=== PATIENT | male | born 1960 | race Caucasian/White ===

== ENCOUNTER 2018-03-30 09:54 | Inpatient (IN) | payer BC ==
[2018-03-30 10:27] LABS: #Lymphocytes 2.2 thou/uL (1.20-3.40); #Neutrophils 7.9 thou/uL (1.40-6.50); %Basophils 0.4 % (0.0-1.0); %Eosinophils 0.2 % (0.0-10.0); %Lymphocytes 19.8 % (21.0-51.0); %Neutrophils 70.5 % (42.0-75.0); Hemoglobin 18.2 g/dL (14.0-18.0); Mean Corpuscular HGB CONC 32.3 g/dL (32.0-36.0); Mean Corpuscular Hemoglobin 29.1 pg (27.0-31.0); Mean Corpuscular Volume 90.2 fL (78.0-98.0); Mean Platelet Volume 8.5 fL (7.4-10.4); Platelet Count 173 thou/uL (130-400); RBC Distribution Width 12.1 % (11.5-14.5); Red Blood Cell (RBC) Count 6.24 mill/uL (4.70-6.10); White Blood Cell (WBC) Count 11.2 thou/uL (4.8-10.8)
--- NOTE | 2018-03-30 10:39 | RAD ---
CHEST ONE VIEW: History: Chest pain. Comparison: None. FINDINGS: Lungs are clear. No pneumothorax or effusion. Cardiac silhouette and mediastinal contours are within normal limits. IMPRESSION: No acute intrathoracic abnormality. POS: [facility]
[2018-03-30 10:57] LABS: ALT (SGPT) 103 U/L (8-55); AST (SGOT) 65 U/L (5-34); Albumin 4.7 g/dL (3.5-5.0); Alkaline Phosphatase 89 U/L (40-150); Anion Gap 17 mmol/L (10-20); BUN (Urea Nitrogen) 17 mg/dL (8.4-25.7); Bilirubin, Total 0.5 mg/dL (0.2-1.2); CK (CPK) 286 U/L (30-200); Calc. Creatinine Clearance 0 mL/min (70-130); Calcium 9.9 mg/dL (7.8-10.44); Carbon Dioxide 22 mmol/L (22-29); Chloride 103 mmol/L (98-107); Estimated GFR-MDRD 77; Globulin 3.6 g/dL (2.4-3.5); Glucose 114 mg/dL (70-105); Lipase 22 U/L (8-78); Potassium 4.6 mmol/L (3.5-5.1); Protein, Total 8.3 g/dL (6.0-8.3); Sodium 137 mmol/L (136-145)
[2018-03-30 11:42] LABS: CKMB 37.5 ng/mL (0-6.6)
[2018-03-30] MEDS ORDERED: Enoxaparin Sodium 80 MG/0.8 ML SYRINGE ONE (12:33)
[2018-03-30] MEDS ORDERED: Nitroglycerin 2% Ointment 1 INCH/1 GM Packet ONE (12:37)
[2018-03-30 13:05] LABS: Acetaminophen Less than 6.0 mcg/mL (10.0-30.0); Alcohol Less than 10 mg/dL (Less than 10); Salicylate Less than 8.0 mg/dL (15.0-30.0)
[2018-03-30] MEDS ORDERED: Dextrose 50% Abboject 50 ML SYRINGE ONE (13:23)
[2018-03-30 13:34] LABS: Medtox Reader # READER 1
[2018-03-30 13:35] LABS: Amphetamine Not Detected (NotDetected); Barbiturates Screen Not Detected (NotDetected); Benzodiazepine Screen Not Detected (NotDetected); Cocaine Metabolite Screen Not Detected (NotDetected); Medtox Control Line Valid? VALID (VALID); Methadone Not Detected (NotDetected); Methamphetamine Not Detected (NotDetected); Opiate Screen Not Detected (NotDetected); Oxycodone Screen Not Detected (NotDetected); Phencyclidine (PCP) Not Detected (NotDetected); THC/Cannabinoid Screen Not Detected (NotDetected); Tricyclic Screen Not Detected (NotDetected)
[2018-03-30] MEDS ORDERED: Ondansetron PF 4 MG/2 ML Vial IVP PRN (16:49)
[2018-03-30] MEDS ORDERED: Acetaminophen 325 MG TAB PO PRN (16:49)
[2018-03-30] MEDS ORDERED: Calcium Carbonate 500 MG ChewTAB PO PRN (16:49)
[2018-03-30] MEDS ORDERED: Guaifenesin DM 100-10/5 ML UDCUP PO PRN (16:49)
[2018-03-30] MEDS ORDERED: Ondansetron ODT 4 MG TAB PO PRN (16:49)
[2018-03-30] MEDS ORDERED: Nitroglycerin 0.4 MG TAB (25 Tab Bottle) PO PRN (16:49)
[2018-03-30] MEDS ORDERED: HYDROcodone/Acetaminophen 5/325 mg Tablet PO PRN (16:49)
[2018-03-30] MEDS ORDERED: Labetalol HCl 100 MG/20 ML VIAL SLOW IVP PRN (16:56)
[2018-03-30] MEDS ORDERED: ALPRAZolam 0.25 MG TAB PO PRN (16:56)
[2018-03-30] MEDS ORDERED: Temazepam 15 MG CAP PO PRN (16:56)
[2018-03-30 17:00] LABS: CKMB 31.8 ng/mL (0-6.6)
--- NOTE | 2018-03-30 17:02 | HP ---
PRIMARY CARE PHYSICIAN: None. CHIEF COMPLAINT: Chest discomfort. HISTORY OF PRESENT ILLNESS: The patient is a 57-year-old male with more than [id number] smoking history, presented to the emergency room with chest discomfort. The chest discomfort has been ongoing for last 3 to 4 days. It is substernal, radiating to his left shoulder. The pain gets worse on exertion. It improves with resting. He denies any shortness of breath, lightheadedness, dizziness, nausea, vomiting, recent immobilization, travel, or cough. He occasionally feels his heart beat skipping. He denies previous cardiac workup. No drug use reported. In the emergency room, initial vital signs showed temperature 97.6, respirations 18, pulse rate of 106, blood pressure of 141/98 with O2 saturation 97% on room air. His troponin was 1.9 with CK-MB of 37.5. His EKG showed sinus rhythm with nonspecific ST-T wave changes. He received Lovenox, aspirin, and IV fluids in the emergency room. PAST MEDICAL HISTORY: Tobacco dependence/anxiety. PAST SURGICAL HISTORY: Reviewed with the patient and none. ALLERGIES: NO KNOWN DRUG ALLERGIES. CURRENT HOME MEDICATION: The patient takes; 1. Aspirin every other day. 2. Multivitamin. SOCIAL HISTORY: More than 01-[id number]-[id number] smoking history. He continues to smoke up to one pack a day. Drinks alcohol especially on Fridays. No drug use reported. FAMILY HISTORY: Mother with stomach cancer. REVIEW OF SYSTEMS: All other review of systems was reviewed and was found negative. PHYSICAL EXAMINATION: VITAL SIGNS: As discussed above. GENERAL: A 57-year-old male, in no apparent distress. Chest discomfort has improved. HEENT: Head; atraumatic, normocephalic. Sclerae are anicteric. Moist mucous membranes. No oral lesion. NECK: Supple. No JVD. No carotid bruit. LUNGS: Clear to auscultation bilaterally. HEART: S1 and S2 present. Regular rate and rhythm. No murmurs, rubs, or gallops are appreciated. ABDOMEN: Soft, nontender. Bowel sounds present. EXTREMITIES: No edema or calf tenderness. NEUROLOGY: Grossly nonfocal. Moves all 4 extremities. PSYCHIATRY: Alert, awake, and oriented x3. SKIN: Warm and dry. LYMPH NODES: No palpable lymph nodes in the neck. PERIPHERAL VASCULAR: Radial pulses palpable bilaterally. MUSCULOSKELETAL: No joint swelling or tenderness. LABORATORY FINDINGS: WBC 11.2 with hemoglobin 18.2, hematocrit 56.3, and platelet 173. Chemistry showed sodium 137, potassium 4.6, chloride 103, bicarb 22, BUN 17, and creatinine 1. AST 65, ALT 103. Troponin 1.9, CK-MB 37.5. DIAGNOSTIC DATA: Chest x-ray by my review was negative for infiltrate. EKG by my review as discussed above. Urine drug screen was negative. IMPRESSION: 1. Zsl-LV-gspyalvie myocardial infarction. 2. Tobacco dependence. 3. Chronic kidney disease, stage 2. 4. Abnormal LFTs of unclear etiology, probably secondary to alcohol use. 5. Chronic alcohol use. 6. Mildly elevated CK. 7. Anxiety. PLAN: The patient will be monitored on the Telemetry Unit. We will continue aspirin, Lovenox with nitro patch along with gentle hydration. Cardiology will be consulted. Tobacco cessation was emphasized. The patient will be kept n.p.o. past midnight for possible cardiac catheterization. We will check 3 sets of troponin. Plan of care was discussed with the patient in detail. He stated understanding. Echocardiogram will be done. Job ID: [id number]
[2018-03-30] MEDS ORDERED: Communication Order-Pharmacy FS SCH (20:00)
[2018-03-30] MEDS: Metoprolol Tartrate 25 MG TAB PO SCH (21:00)
[2018-03-30] MEDS: Famotidine 20 MG TAB PO SCH (21:00)
[2018-03-30] MEDS: Nitroglycerin 2% Ointment 1 INCH/1 GM Packet TOP SCH ×2 (21:00→23:55)
[2018-03-30 22:24] VITALS: BMI 27.0
[2018-03-31] MEDS ORDERED: Enoxaparin Sodium 40 MG/0.4 ML SYRINGE SC SCH (01:00)
[2018-03-31] MEDS: Nitroglycerin 2% Ointment 1 INCH/1 GM Packet TOP SCH ×2 (01:37→11:24)
[2018-03-31 05:12] LABS: #Basophils 0.1 thou/uL (0.0-0.2); #Eosinphils 0.1 thou/uL (0.0-0.7); #Lymphocytes 2.5 thou/uL (1.20-3.40); #Monocytes 1.2 thou/uL (0.11-0.59); %Basophils 0.7 % (0.0-1.0); %Monocytes 10.8 % (0.0-10.0); %Neutrophils 64.5 % (42.0-75.0); Hemoglobin 16.3 g/dL (14.0-18.0); Mean Corpuscular HGB CONC 33.7 g/dL (32.0-36.0); Mean Corpuscular Hemoglobin 30.9 pg (27.0-31.0); Mean Corpuscular Volume 91.6 fL (78.0-98.0); Mean Platelet Volume 8.6 fL (7.4-10.4); Platelet Count 158 thou/uL (130-400); RBC Distribution Width 12.2 % (11.5-14.5); Red Blood Cell (RBC) Count 5.27 mill/uL (4.70-6.10); White Blood Cell (WBC) Count 10.8 thou/uL (4.8-10.8)
[2018-03-31] MEDS: Famotidine 20 MG TAB PO SCH ×2 (05:33→20:43)
[2018-03-31] MEDS: Metoprolol Tartrate 25 MG TAB PO SCH ×2 (05:34→20:43)
[2018-03-31 05:39] LABS: Anion Gap 14 mmol/L (10-20); BUN (Urea Nitrogen) 17 mg/dL (8.4-25.7); Calc. Creatinine Clearance 114 mL/min (70-130); Calcium 9.3 mg/dL (7.8-10.44); Carbon Dioxide 23 mmol/L (22-29); Cardiac Risk 6.3 (Less than 4.5); Chloride 107 mmol/L (98-107); Cholesterol 165 mg/dl (< 200 Desired); Estimated GFR-MDRD 88; Glucose 92 mg/dL (70-105); HDL Cholesterol 26 mg/dL (>60 Neg Risk); LDL Cholesterol, Calculated 120 mg/dL; Potassium 4.1 mmol/L (3.5-5.1); Sodium 140 mmol/L (136-145); Triglycerides 97 mg/dL (Less than 150)
[2018-03-31] MEDS ORDERED: Sodium Chloride 0.9% 1,000 ML IV SCH ×2 (06:00→07:55)
[2018-03-31 06:07] LABS: CKMB 14.1 ng/mL (0-6.6)
[2018-03-31] MEDS ORDERED: Heparin 10,000 UNITS/1 ML VIAL ONE (06:43)
[2018-03-31] MEDS ORDERED: Nitroglycerin 100MG/250ML BOT 0 ML ONE (06:44)
[2018-03-31] MEDS ORDERED: Lidocaine 1% (PF) 30 ML VIAL ONE (06:44)
[2018-03-31] MEDS ORDERED: Lidocaine 1% w/Epinephrine 1:100K 20 ML VIAL ONE (06:44)
[2018-03-31] MEDS ORDERED: Midazolam HCl 2 mg/2 ml Vial ONE (07:17)
[2018-03-31] MEDS ORDERED: Fentanyl 100 MCG/2 ML VIAL ONE (07:17)
[2018-03-31] MEDS ORDERED: Protamine Sulfate 50 MG/5 ML VIAL ONE (07:31)
--- NOTE | 2018-03-31 07:32 | CON ---
DATE OF CONSULTATION: 03/30/2018 HISTORY OF PRESENT ILLNESS: Omid Cardona is a 57-year-old white male without any previous cardiac problems. He began to notice on March 25 while carrying things at work, that he would begin to have central chest tightness. This would last 15 to 45 minutes. He denied any shortness of breath, nausea, vomiting, or diaphoresis with this. This continued and he ultimately decided to come to the emergency room today for evaluation. PAST MEDICAL HISTORY: He denies any history of hypertension, diabetes, or hypercholesterolemia. MEDICATIONS Occasional aspirin. ALLERGIES: NONE. PAST SURGICAL HISTORY: None. SOCIAL HISTORY: He smokes 1 pack per day. He drinks alcohol on Fridays. FAMILY HISTORY: His real father of myocardial infarction. REVIEW OF SYSTEMS: 12-point review of systems is otherwise unremarkable. PHYSICAL EXAMINATION: VITAL SIGNS: Blood pressure 142/89, pulse of 81. HEENT: PERRL. NECK: Supple. CHEST: Clear. CARDIAC: S1 and S2 are normal without any S3, S4, or murmurs. Carotid upstrokes are normal without bruits. ABDOMEN: Normal bowel sounds without tenderness or organomegaly. EXTREMITIES: Revealed no clubbing, cyanosis, or edema. NEUROLOGIC: Grossly intact. SKIN: Warm and dry. LABORATORY DATA: EKG reveals sinus tachycardia with rate of 104 per minute, nonspecific ST-segment changes. Hemoglobin 18.2, hematocrit 56.3, white count 11,200, platelets 173,000. Sodium 137, potassium 4.6, chloride 103, carbon dioxide 22, BUN 17, creatinine 1.00, glucose 114. CK-MB 37.5, troponin I of 3.309. BNP 146.4. IMPRESSION: 1. [id number] myocardial infarction with acute coronary syndrome over the last 5 days. 2. Unknown cholesterol status. 3. Smoker. 4. Positive family history. PLAN: Situation discussed with the patient. It was recommended that he undergo cardiac catheterization. Risks of this were discussed including , myocardial infarction, dye reaction, vascular injury, CVA, transfusion, limb loss, renal loss, etc. Also risk of intervention with PTCA and stent placement were discussed including , myocardial infarction, emergent CABG, restenosis, stent thrombosis, vessel perforation, etc. He has no history of gastrointestinal bleeding or stroke. He has no upcoming surgeries and overall is recommended that a drug-eluting stent be placed if required. Job ID: [id number] [facility]
[2018-03-31] MEDS ORDERED: Nitroglycerin 0.4 MG TAB (25 Tab Bottle) SL PRN (07:53)
[2018-03-31] MEDS ORDERED: Acetaminophen/Codeine 30-300mg Tablet PO PRN ×2 (07:53)
[2018-03-31] MEDS ORDERED: traMADol HCl 50 MG TAB PO PRN (07:53)
[2018-03-31] MEDS ORDERED: Sodium Chloride 0.9% 200 ML IV SCH (08:00)
[2018-03-31] MEDS ORDERED: Iopamidol 370 76% 100 ML VIAL ONE (09:00)
[2018-03-31] MEDS ORDERED: Aspirin 325 MG TAB PO SCH (09:00)
[2018-03-31] MEDS ORDERED: Iopamidol 370 76% 50 ML VIAL FS ONE (09:00)
--- NOTE | 2018-03-31 12:04 | CON ---
DATE OF CONSULTATION: 03/31/2018 REQUESTING PHYSICIAN: Kennedy Mendez MD CHIEF COMPLAINT: Chest pain. HISTORY OF PRESENT ILLNESS: The patient is a 57-year-old man, who has no known past medical history. He essentially never goes to the doctor. He essentially takes no medications on a regular basis other than an aspirin every other day or so. He normally is quite active. Over the last few days, he has been having a stuttering pattern of chest pain with pain and pressure in central substernal position radiating to his left shoulder and arm. Most of these episodes have been during periods of physical activity and relieved with rest, but Friday night, he had an episode that happened at rest. In retrospect, he thinks that perhaps he has had some of these episodes before, but they were mild enough that he did not pay much attention to them. PAST MEDICAL HISTORY: Noncontributory. MEDICATIONS: He irregularly takes aspirin. His current medications in the hospital are; 1. Aspirin 325 mg a day. 2. Lipitor 40 mg at bedtime. 3. Lopressor 12.5 mg b.i.d. 4. Nitro paste one-half inch q.6 hours. 5. Pepcid 20 mg b.i.d. ALLERGIES: HE DENIES ANY MEDICAL OR FOOD ALLERGIES. FAMILY HISTORY: Significant for his father having had a heart attack. His mother had a stroke in her 50s or 60s, but lived into her mid 80s and of gastric cancer. REVIEW OF SYSTEMS: Negative for any eye, speech, facial or extremity symptoms consistent with TIAs. Negative for any shortness of breath, orthopnea, or PND. Negative for any dependent edema. Negative for any change in weight. Negative for any change in bowel or bladder habits. Negative for any urinary obstructive symptoms. PHYSICAL EXAMINATION: GENERAL: He is mcdonald, healthy-appearing man, in no distress. VITAL SIGNS: Height is 5 feet 11 inches, weight is 194 pounds. His most recent heart rate is 84 and blood pressure 116/79. At presentation in the emergency room, his heart rate was 106 and blood pressure 141/98, room air O2 sat has been 92% to 95%. HEENT: He has no xanthelasma. No JVD. No carotid bruits. CHEST: Clear to auscultation. CARDIAC: He has regular rate and rhythm. ABDOMEN: Soft and nontender without organomegaly, masses, or bruits. EXTREMITIES: He has easily palpable radial, femoral, popliteal, dorsalis pedis and posterior tibial pulses. Ricardo testing on both hands is normal. He has some spidery type varicosities at the ankles. No clubbing, cyanosis, or edema. NEUROLOGIC: Grossly nonfocal. LABORATORY DATA: Laboratory exam on admission showed white count of 11.2, hemoglobin of 18.2, hematocrit 56.3, and platelets 173,000. Today, his hemoglobin is 16.3 and hematocrit 48.2. Sodium 137, potassium 4.6, chloride 103, CO2 of 22, glucose 114, BUN 17, creatinine 1 with similar labs on this morning's blood draw, protein was 8.3, albumin 3.6, calcium 9.9, and magnesium 2.1. Bilirubin 0.5, alkaline phosphatase 89, AST 65, and ALT 103. At about 10 in the morning yesterday, his CK was 286, MB was 37.5 and troponin 1.914. Quarter to 1 yesterday, troponin was 2.181. At around 4 o'clock yesterday afternoon, his CK-MB was down to 31.8 and troponin up to 3.309. His BNP was 146.4. At about 5 o'clock this morning, his CK-MB was down to 14.1. His troponin did continue to rise to 3.889. Fasting lipid showed a triglyceride of 97, cholesterol 165, LDL 120, and HDL 26. DIAGNOSTIC DATA: Chest x-ray shows normal cardiac silhouette, but rather prominent pulmonary markings. Cardiac catheterization today shows right dominant system. He has about a 70% lesion in his LAD just beyond a fairly high first diagonal. He has a small ramus with some luminal irregularity with 40% or 50% lesion in it. He has a circumflex that gives rise to 2 obtuse marginals. That circumflex has a subtotal lesion in it. He has a large right coronary system with diffuse irregularity to the contour. There was a fairly easily demonstrable 70% or 80% lesion very proximally, but clearance of dye just a little bit beyond that at the level of an acute marginal proximally. It is very slow, in fact some dye hangs up. LVEF is around 60% or perhaps even 70%. LVEDPs were 6 and 7 with an LV pressure of 128/2 and an aortic pressure on pullback of 134/76. IMPRESSION AND PLAN: Severe three-vessel coronary artery disease in a young otherwise healthy person. The patient has no history of diabetes or any elevated glucoses to suggest diabetes. In fact, his glucose was 88 on this morning's labs. He was able to blow up quite forcefully against my hand. Has no chronic cough or any breathing difficulties in spite of his roughly [id number] history of smoking. I think in the long run, surgical revascularization would be to his benefit and given his young age and lack of other significant comorbidities, I think he would be a good candidate for multiple arterial conduits. I discussed this with the patient and although understandably scared and nervous, he agrees to proceed. Job ID: [id number]
[2018-03-31] MEDS: ALPRAZolam 0.25 MG TAB PO PRN ×2 (12:50→20:50)
[2018-03-31] MEDS ORDERED: Communication Order-Pharmacy FS SCH (17:11)
--- NOTE | 2018-03-31 18:29 | PDOC.PN ---
- Subjective Encounter Start Date: 03/31/18 Encounter Start Time: 10:00 Patient seen and examined for NSTEMI. s/p Cath. No new complaints. No overnight events - Objective Resuscitation Status - Order Detail: 03/30/18 16:49 Resuscitation Status Routine Resuscitation Status: FULL: Full Resuscitation MAR Reviewed: Yes Vital Signs & Weight: Vital Signs (12 hours) Temp Pulse Resp BP BP BP Pulse Ox 03/31/18 15:28 99.6 F 73 15 136/88 95 03/31/18 11:52 99.7 F H 77 15 137/78 96 03/31/18 08:05 97.9 F 70 14 132/82 132/82 97 Weight Weight 194 lb Result Diagrams: 03/31/18 04:44 03/31/18 04:44 EKG Reviewed by me: Yes (Tele SR) Phys Exam - Physical Examination Constitutional: NAD Respiratory: no wheezing, no rhonchi Cardiovascular: RRR, no rub Gastrointestinal: soft, non-tender, positive bowel sounds Musculoskeletal: no edema Neurological: moves all 4 limbs Dx/Plan - Plan DVT proph w/SCDs 1. NSTEMI/3 V disease 2. Tobacco dependence. 3. Chronic kidney disease, stage 2. 4. Abnormal LFTs of unclear etiology, probably secondary to alcohol use. 5. Chronic alcohol use. 6. Mildly elevated CK. 7. Anxiety. PLAN: CABG recommended Cont ASA/Metoprolol and Statins Cont current meds as below Review of Systems - Review of Systems Respiratory: negative: Cough, Dry, Shortness of Breath, Hemoptysis, SOB with Excertion, Pleuritic Pain, Sputum, Wheezing Cardiovascular: negative: chest pain, palpitations, orthopnea, paroxysmal nocturnal dyspnea, edema, light headedness, other - Medications/Allergies Allergies/Adverse Reactions: Allergies Allergy/AdvReac Type Severity Reaction Status Date / Time UNKNOWN Allergy Uncoded 03/30/18 19:52 Medications: Current Medications Acetaminophen (Tylenol) 650 mg PO Q4H PRN PRN Reason: Headache/Fever/Mild Pain (1-3) Last Admin: 03/31/18 11:51 Dose: 650 mg Acetaminophen/Codeine Phosphate (Tylenol #3) 1 tab PO Q4H PRN PRN Reason: Mild Pain (1-3) Acetaminophen/Codeine Phosphate (Tylenol #3) 2 tab PO Q4H PRN PRN Reason: Moderate Pain (4-6) Hydrocodone Bitart/Acetaminophen ([place] 5/325) 1 tab PO Q6H PRN PRN Reason: Moderate Pain (4-6) Last Admin: 03/31/18 05:36 Dose: 1 tab Alprazolam (Xanax) 0.25 mg PO TIDPRN PRN PRN Reason: Anxiety Last Admin: 03/31/18 12:50 Dose: 0.25 mg Aspirin (Aspirin) 325 mg PO DAILY [facility] Last Admin: 03/31/18 05:33 Dose: 325 mg Atorvastatin Calcium (Lipitor) 40 mg PO HS [facility] Calcium Carbonate (Tums) 1,000 mg PO Q4H PRN PRN Reason: Heartburn or Indigestion Cefazolin Sodium (Cabg-Ancef) 2 gm SLOW IVP ONE [facility] Famotidine (Pepcid) 20 mg PO BID [facility] Last Admin: 03/31/18 05:33 Dose: 20 mg Guaifenesin/Dextromethorphan (Robitussin Dm) 15 ml PO Q4H PRN PRN Reason: Cough Labetalol HCl (Normodyne) 10 mg SLOW IVP Q4H PRN PRN Reason: Systolic BP > 180 Metoprolol Tartrate (Lopressor) 12.5 mg PO BID [facility] Last Admin: 03/31/18 05:34 Dose: 12.5 mg Miscellaneous Information (Communication Order-Pharmacy) 1 each FS ONE ONE Stop: 03/31/18 17:12 Nitroglycerin (Nitrostat) 0.4 mg SL Q5MIN PRN PRN Reason: Chest Pain Ondansetron HCl (Zofran Odt) 4 mg PO Q6H PRN PRN Reason: Nausea/Vomiting Ondansetron HCl (Zofran) 4 mg IVP Q6H PRN PRN Reason: Nausea/Vomiting Sodium Chloride (Flush - Normal Saline) 10 ml IVF PRN PRN PRN Reason: Saline Flush Temazepam (Restoril) 15 mg PO HS PRN PRN Reason: Insomnia Tramadol HCl (Ultram) 50 mg PO Q6H PRN PRN Reason: Moderate Pain (4-6)
[2018-03-31] MEDS ORDERED: Atorvastatin Calcium 40 MG TAB PO SCH (21:00)
[2018-04-01] MEDS: Metoprolol Tartrate 25 MG TAB PO SCH (06:23)
[2018-04-01] MEDS ORDERED: Albumin 5% 500 ML ONE (06:32)
[2018-04-01] MEDS ORDERED: Midazolam HCl 2 mg/2 ml Vial ONE (06:42)
[2018-04-01] MEDS ORDERED: Fentanyl 100 MCG/2 ML VIAL ONE (06:42)
[2018-04-01] MEDS ORDERED: Vecuronium 10 MG VIAL ONE ×2 (06:43→22:06)
[2018-04-01] MEDS ORDERED: Midazolam HCl 5 mg/5 ml Vial ONE (06:43)
[2018-04-01] MEDS ORDERED: Dexmedetomidine 200 MCG/2 ML VIAL ONE (06:43)
[2018-04-01] MEDS ORDERED: CEFAZOLIN 2 GM/50 ML BAG ONE (06:56)
[2018-04-01] MEDS ORDERED: CEFAZOLIN 2 GM/50 ML BAG IVPB SCH (07:00)
[2018-04-01] MEDS ORDERED: Heparin 10,000 UNITS/1 ML VIAL 30,000 UNITS in Sodium Chloride 0.9% 1,000 ML FS SCH (07:00)
[2018-04-01 09:02] LABS: Analyzer IN Cardio OR; Base Excess (BEa) -0.9 mEq/L (-2.0 to +3.0); CO2 Tension 40.5 mmHg (35.0-45.0); Calcium, Ionized 1.17 mmol/L (1.12-1.30); Carboxyhemoglobin (COHb) 1.3 gm% (0.0-3.0); Hemoglobin (Hb) 15.9 g/dL (14.0-18.0); O2 Tension (PaO2) 375.8 mmHg (80.0-100.0); Potassium - ABG Lab 4.11 mmol/L (3.70-5.30); Puncture Site ALINE; pH, Arterial 7.39 (7.35-7.45)
[2018-04-01] MEDS ORDERED: Papaverine 60 MG/2 ML VIAL ONE ×2 (09:15→22:06)
[2018-04-01] MEDS ORDERED: Fentanyl 100 MCG/2 ML VIAL SLOW IVP PRN ×2 (10:30)
[2018-04-01] MEDS ORDERED: Morphine 2 MG/ML SYRINGE SLOW IVP PRN (10:30)
[2018-04-01] MEDS ORDERED: Bisacodyl 5 MG TAB PO PRN (10:30)
[2018-04-01] MEDS ORDERED: hydrALAZINE 20 MG/ML VIAL SLOW IVP PRN (10:30)
[2018-04-01] MEDS ORDERED: Guaifenesin DM 100-10/5 ML UDCUP PO PRN (10:30)
[2018-04-01] MEDS ORDERED: Bisacodyl 10 MG SUPP PR PRN (10:30)
[2018-04-01] MEDS ORDERED: Mag-Al 1200 mg/1200 mg/30 ML UDCUP PO PRN (10:30)
[2018-04-01] MEDS ORDERED: Ondansetron PF 4 MG/2 ML Vial IVP PRN (10:30)
[2018-04-01] MEDS ORDERED: Nitroglycerin 50 MG/250 ML BOT 250 ML IVPB PRN (10:30)
[2018-04-01] MEDS ORDERED: Promethazine HCl 25 MG/ML VIAL IM PRN (10:30)
[2018-04-01] MEDS ORDERED: Hetastarch 6% 500 ML 500 ML IVPB PRN (10:30)
[2018-04-01] MEDS ORDERED: Post-Op Insulin Drip Protocol IVPB ONE (10:30)
[2018-04-01] MEDS ORDERED: Acetaminophen 325 MG TAB PO PRN (10:30)
[2018-04-01] MEDS ORDERED: Dextrose 5% in Water 1,000 ML IV PRN (10:49)
[2018-04-01] MEDS ORDERED: Dextrose 50% Abboject 50 ML SYRINGE SLOW IVP PRN (10:49)
[2018-04-01] MEDS ORDERED: Aspirin 325 MG TAB PO SCH (11:00)
[2018-04-01] MEDS ORDERED: Famotidine/PF 20 mg/2ml Vial SLOW IVP SCH (11:00)
[2018-04-01] MEDS ORDERED: Docusate 100 MG CAP PO SCH (11:00)
[2018-04-01] MEDS ORDERED: Norepinephrine 4 MG/4 ML VIAL ONE (15:03)
[2018-04-01] MEDS ORDERED: Norepinephrine 8 MG/0.9% NS 250 ML ONE (15:03)
[2018-04-01] MEDS: Ketorolac Tromethamine 30 MG/ML VIAL IVP SCH ×3 (15:46→23:08)
[2018-04-01 16:05] LABS: Actual Bicarbonate (HCO3a) 21.3 mEq/L (22-28); Base Excess (BEa) -3.5 mEq/L (-2.0 to +3.0); CO2 Tension 37.5 mmHg (35.0-45.0); Calcium, Ionized 1.18 mmol/L (1.12-1.30); Carboxyhemoglobin (COHb) 1.7 gm% (0.0-3.0); Hemoglobin (Hb) 13.3 g/dL (14.0-18.0); O2 Tension (PaO2) 89.7 mmHg (80.0-100.0); pH, Arterial 7.37 (7.35-7.45)
[2018-04-01 16:05] LABS: INR-International Normal Ratio 1.4; PTT 31.8 SEC (22.9-36.1); Prothrombin Time 17.5 SEC (12.0-14.7)
[2018-04-01 16:06] LABS: Hemoglobin 12.9 g/dL (14.0-18.0); Mean Corpuscular HGB CONC 33.1 g/dL (32.0-36.0); Mean Corpuscular Hemoglobin 30.2 pg (27.0-31.0); Mean Corpuscular Volume 91.3 fL (78.0-98.0); Mean Platelet Volume 8.5 fL (7.4-10.4); Platelet Count 95 thou/uL (130-400); RBC Distribution Width 11.8 % (11.5-14.5); Red Blood Cell (RBC) Count 4.27 mill/uL (4.70-6.10); White Blood Cell (WBC) Count 20.2 thou/uL (4.8-10.8)
[2018-04-01 16:16] LABS: ALV-art Gradient 219.925 (0-20); Puncture Site ALINE
[2018-04-01 16:16] LABS: Band 8 % (5-11); Large Platelets SLIGHT; Lymphocytes 4 % (21-51); MDiff Complete? YES; Monocytes 5 % (0-10); Neutrophil 83 % (42-75); PLT Morphology Comment Appears Decreased; RBC Morphology Normal
[2018-04-01 16:21] LABS: Anion Gap 17 mmol/L (10-20); BUN (Urea Nitrogen) 21 mg/dL (8.4-25.7); Calc. Creatinine Clearance 106 mL/min (70-130); Calcium 8.9 mg/dL (7.8-10.44); Carbon Dioxide 20 mmol/L (22-29); Chloride 110 mmol/L (98-107); Estimated GFR-MDRD 81; Glucose 158 mg/dL (70-105); Potassium 4.3 mmol/L (3.5-5.1); Sodium 143 mmol/L (136-145)
[2018-04-01] MEDS: Insulin Regular 300 UNITS/3 ML VIAL SC PRN ×3 (16:36→23:17)
--- NOTE | 2018-04-01 17:23 | RAD ---
SINGLE VIEW CHEST: Date: 04/01/18 COMPARISON: 03/30/18. HISTORY: Status post open heart surgery. FINDINGS: Single view of the chest shows a normal sized cardiomediastinal silhouette. THE PATIENT is status pos t sternotomy. An endotracheal tube is seen with its tip between the clavicles. A NG tube can only be followed down to the distal esophagus and may not be completely within the stomach. A right subclavia n central venous catheter is seen with its tip at the atriocaval junction. Mediastinal drains and a r ight chest tube are seen. No pneumothorax is present. IMPRESSION: Questionable position of the NG tube; otherwise appropriate position of lines and tubes. POS: [facility]
[2018-04-01 17:27] LABS: Base Excess (BEa) -1.6 mEq/L (-2.0 to +3.0); CO2 Tension 33.7 mmHg (35.0-45.0); Calcium, Ionized 1.13 mmol/L (1.12-1.30); Carboxyhemoglobin (COHb) 1.3 gm% (0.0-3.0); Hemoglobin (Hb) 13.2 g/dL (14.0-18.0); Potassium - ABG Lab 4.42 mmol/L (3.70-5.30); pH, Arterial 7.43 (7.35-7.45)
[2018-04-01 17:29] LABS: ALV-art Gradient 149.075 (0-20); Puncture Site ALINE
[2018-04-01] MEDS: Sodium Chloride 0.9% 1,000 ML IV SCH (17:36)
[2018-04-01 19:57] LABS: Hemoglobin 12.5 g/dL (14.0-18.0)
[2018-04-01 20:14] LABS: Potassium 4.6 mmol/L (3.5-5.1)
[2018-04-01] MEDS: Famotidine/PF 20 mg/2ml Vial SLOW IVP SCH (20:41)
[2018-04-01] MEDS: Docusate 100 MG CAP PO SCH (20:41)
[2018-04-01] MEDS ORDERED: Lidocaine 1% PF 5 ML VIAL ONE (22:06)
[2018-04-01] MEDS ORDERED: Calcium Chloride 1 GM/10 ML Abboject SYRINGE ONE (22:06)
[2018-04-01] MEDS ORDERED: Nitroglycerin 50 MG/250 ML BOT ONE (22:06)
[2018-04-01] MEDS ORDERED: Thrombin 5000 UNITS/5 ML VIAL ONE (22:06)
[2018-04-01] MEDS ORDERED: Protamine Sulfate 250 MG/25 ML VIAL ONE (22:06)
[2018-04-01] MEDS ORDERED: Magnesium 5 GM/10 ML VIAL ONE (22:06)
[2018-04-01] MEDS ORDERED: PHENYLEPHRINE-NS 100 MCG/ML 10 ML SYRINGE ONE (22:06)
[2018-04-01] MEDS ORDERED: Sterile Water 10 ML VIAL ONE (22:06)
[2018-04-01] MEDS ORDERED: Cardioplegic Soln 1,000 ML BAG ONE (22:06)
[2018-04-01] MEDS ORDERED: Lidocaine 2% PF 100 mg/5 ml Syringe ONE (22:06)
[2018-04-01] MEDS ORDERED: Sodium Bicarb 50 MEQ/50 ML VIAL ONE (22:06)
[2018-04-01] MEDS ORDERED: Potassium Chloride 60 MEQ/30 ML VIAL ONE (22:06)
[2018-04-01] MEDS ORDERED: Albumin 25% 25 GM/100 ML BOT ONE (22:06)
[2018-04-01] MEDS ORDERED: DOPamine/D5W 400 mg/250 ml PREMIX ONE (22:06)
[2018-04-01] MEDS ORDERED: Heparin 30,000 units/30 ml VIAL ONE (22:06)
[2018-04-01] MEDS ORDERED: Heparin 5,000 UNITS/ML VIAL ONE (22:06)
[2018-04-01] MEDS ORDERED: Mannitol 12.5 GM/50 ML ONE (22:06)
[2018-04-01] MEDS ORDERED: ePHEDrine/0.9% NaCl/PF SYRINGE 50 mg/10 ml ONE (22:06)
[2018-04-01] MEDS ORDERED: Aminocaproic Acid 5 GM/20 ML VIAL ONE (22:06)
[2018-04-01] MEDS: HYDROcodone/Acetaminophen 5/325 mg Tablet PO PRN (22:12)
--- NOTE | 2018-04-01 23:36 | OP ---
DATE OF PROCEDURE: 04/01/2018 PROCEDURES PERFORMED: Coronary artery bypass grafting x3 with left internal mammary artery to the left anterior descending, free right internal mammary artery from the aorta to the first obtuse marginal and right radial artery from the aorta to the posterior descending artery. PREOPERATIVE DIAGNOSIS: Coronary artery disease, status post [id number] myocardial infarction. POSTOPERATIVE DIAGNOSIS: Coronary artery disease, status post [id number] myocardial infarction. ANESTHESIA: General endotracheal anesthesia. INDICATIONS: The patient is a 57-year-old man with no significant past medical history, who presented with stuttering pattern of chest pain and was found to have elevated cardiac enzymes consistent with a [id number]-DM-[id number] myocardial infarction. Cardiac catheterization demonstrated severe 3-vessel coronary artery disease with preserved LV function. After discussing treatment options and strategies with him, it was opted to proceed for surgical revascularization with a goal of revascularization with total arterial conduit. FINDINGS: Small, but otherwise good quality IMAs with good flow, large good quality radial artery. The LAD was about 2 mm vessel distally were grafted, but it was diffusely involved with leathery plaque. The circumflex was about 2.5 mm vessel leading to about a 1.5 to 2 mm OM1 and a 1.5 mm of OM2. The right coronary artery proper and proximal PDA were involved with firmer plaque, the PDA quickly became a good quality vessel, though it was about 2 mm in diameter. The pericardium was closed. NARRATIVE REPORT: After informed consent was obtained, the patient was taken to the operating room and placed in supine position on the operating table. After the induction of general endotracheal anesthesia, the patient's right upper chest was prepped and draped in sterile fashion and the patient was placed in Trendelenburg. A triple lumen central line kit was used to place a right subclavian central line by the Seldinger technique. All 3 ports were easily aspirated and flushed. The line was secured. The patient's torso, right upper extremity, groins, and bilateral lower extremities were then prepped and draped in sterile fashion. A longitudinal incision was made over the palpable right radial pulse and the radial artery was exposed and isolated. Doppler interrogation of the hand showed preservation of the Doppler signals in the palmar arch and digital vessels in distal phalanges with a test occlusion of the radial artery. The radial artery was then harvested, skeletonizing it from the level of the wrist to its origin from the brachial artery using a skin bridge technique. Side branch was controlled with small hemoclips. Vessel was doubly ligated and divided near its origin. There was good back bleeding from it. It was then doubly ligated and divided distally. The distal end of it was cannulated with a small blunt-tip injection needle and the vessel distended with papaverine solution to relieve spasm and to assess for adequacy of control of side branches. The radial artery was then placed in a papaverine-soaked sponge. The wounds were inspected for hemostasis and closed in layers of subcutaneous and subcuticular Vicryl. The wound was dressed and wrapped and that arm was tucked. An oblique incision was made in the proximal left thigh. The greater saphenous vein was exposed and about 5 or 6 cm of saphenous vein was harvested to use as a vein patch on the aorta. That site was also closed in layers of subcutaneous and subcuticular Vicryl. A median sternotomy was performed. The right internal mammary artery was harvested as a skeletonized graft. An extrapleural exposure was initiated, but fairly large rent in the pleura was created when completing the proximal dissection. The distal mammary was felt to be too small to use reliably as an in-situ graft for the relatively large right coronary system and the mammary was doubly ligated and divided near its origin from the subclavian artery using hemoclips and singly ligated and divided using silk suture distally. It was cannulated distally and distended and inspected as had been the radial artery. The mammary bed was inspected for hemostasis. A 36-Chadian chest tube was placed into the right pleural space and secured to the skin with suture. The rent in the pleura was closed with running fine Prolene. The left internal mammary artery was then harvested as an skeletonized in-situ graft through an extrapleural exposure and the patient was heparinized. The mammary was ligated and divided distally. There was good flow through the mammary, which was instilled intraluminally with papaverine solution. The mammary bed was inspected for hemostasis. The hilar reflections of the pleura were mobilized. The HILDA retractor was replaced with a Mckinnon retractor. After inspecting the mammary bed, the pericardium was opened and marsupialized. The aorta was palpated and was soft. A double concentric pursestring of 2-0 Ethibond was placed in the ascending aorta within the pericardial reflection and a single pursestring was placed in the right atrial appendage. Aortic and venous cannulae were inserted and secured by their pursestrings. Cardiopulmonary bypass was instituted and the patient was systemically cooled. The heart was examined. The vessels to be bypassed were identified. A longitudinal slit was made in the pericardium anterior to the left phrenic nerve through which the left mammary could be passed without developing the plane between the aorta and the pulmonary artery, and the aortic cross-clamp was applied and cardioplegia was administered through an aortic root needle. When arrest had been achieved, attention was turned to the distal right coronary system. The right coronary was exposed with the proximal dissection, taking down onto the PDA, where it became a good quality vessel. The PDA was opened and the proximal end of the radial artery was anastomosed there end-to-side with running 7-0 Prolene and the anastomosis tested by flushing cold cardioplegia down the graft. Attention was then turned to the circumflex system. The distal circumflex was exposed just proximal to its bifurcation in the OMs 1 and 2. The OM1 seemed to be a little bit larger vessel and extended on with a straighter takeoff, then the OM2. The arteriotomy was extended onto the OM1, which was a good quality vessel. The circumflex proper was involved with leathery plaque proximally. The proximal end of the right HILDA was anastomosed there end-to-side with running 7-0 Prolene. The LAD was then opened distally at a relatively good area and the arteriotomy extended proximally and distally. The left HILDA was generously spatulated and anastomosed there end-to-side with running 7-0 Prolene and tacked to the epicardium. Additional cardioplegia was administered and the aortotomy was made in the ascending aorta with a scalpel and punch. The vein was bivalved and that relatively generous aortotomy was patulously closed with vein patch. A second aortotomy and patch were created just distal to that. The PDA graft was brought along the AV groove and anastomosed to a venotomy made in the patch. The proximal aortotomy was anastomosed there with running 7-0 Prolene. The free right mammary graft to the circumflex system was anastomosed to the vein patch of the more distal aortotomy. The patient was placed in Trendelenburg. The bulldog was removed from the left mammary and cardioplegia was administered through the root needle to help flush the aortic root of air and to allow for backbleeding from the radial and right mammary grafts. The suture line on the right mammary proximal was secured and the root needle was placed back on suction and the aortic cross-clamp removed. The anastomoses were inspected for hemostasis. The posterior pericardial drain was brought out through separate incision and secured with suture. Right atrial and right ventricular temporary epicardial pacing wires were placed. The root needle was removed and its insertion site oversewn with 5-0 Prolene pursestring. A second pursestring of 4-0 Prolene was utilized to complete hemostasis at that site. At this point, the cross-clamp had been off for approximately 15 minutes, almost as soon as the patient began beating, the heart had vigorous contractility. He was easily from cardiopulmonary bypass. Aortic and venous cannulae were removed and the pursestring secured. Protamine was administered when hemostasis was adequate. An anterior mediastinal drain was placed and the pericardium was easily closed over with a running Vicryl. The sternum was treated with vancomycin paste and platelet rich GPS. It was then reapproximated with a combination of simple and [id number] #7 stainless steel wires. Fascia and subcutaneous tissue were irrigated and treated with platelet poor GPS. The fascia was closed over the wires with heavy Vicryl, the subcutaneous tissue was reapproximated with 2-0 Vicryl, and skin closed with 3-0 Vicryl subcuticular suture. The wounds were dressed and the patient was taken to the intensive care unit in stable condition. Job ID: [id number]
[2018-04-02] MEDS: Ketorolac Tromethamine 30 MG/ML VIAL IVP SCH ×3 (05:05→18:28)
[2018-04-02] MEDS: HYDROcodone/Acetaminophen 5/325 mg Tablet PO PRN ×5 (05:05→22:08)
[2018-04-02] MEDS: Norepinephrine 8 MG/0.9% NS 250 ML IVPB PRN ×2 (05:06→19:37)
[2018-04-02] MEDS: Insulin Regular 300 UNITS/3 ML VIAL SC PRN ×2 (05:07→11:37)
[2018-04-02] MEDS: Sodium Chloride 0.9% 1,000 ML IV SCH ×2 (05:07→18:27)
[2018-04-02 05:11] LABS: #Lymphocytes 2.6 thou/uL (1.20-3.40); #Monocytes 1.9 thou/uL (0.11-0.59); #Neutrophils 10.3 thou/uL (1.40-6.50); %Basophils 0.3 % (0.0-1.0); %Lymphocytes 17.7 % (21.0-51.0); %Monocytes 12.5 % (0.0-10.0); %Neutrophils 69.4 % (42.0-75.0); Hemoglobin 10.9 g/dL (14.0-18.0); Mean Corpuscular HGB CONC 33.3 g/dL (32.0-36.0); Mean Corpuscular Hemoglobin 30.8 pg (27.0-31.0); Mean Corpuscular Volume 92.5 fL (78.0-98.0); Mean Platelet Volume 8.8 fL (7.4-10.4); Platelet Count 96 thou/uL (130-400); RBC Distribution Width 12.1 % (11.5-14.5); Red Blood Cell (RBC) Count 3.53 mill/uL (4.70-6.10); White Blood Cell (WBC) Count 14.8 thou/uL (4.8-10.8)
[2018-04-02 05:26] LABS: Anion Gap 13 mmol/L (10-20); BUN (Urea Nitrogen) 25 mg/dL (8.4-25.7); Calc. Creatinine Clearance 105 mL/min (70-130); Calcium 8.5 mg/dL (7.8-10.44); Carbon Dioxide 24 mmol/L (22-29); Chloride 111 mmol/L (98-107); Estimated GFR-MDRD 80; Glucose 121 mg/dL (70-105); Sodium 144 mmol/L (136-145)
[2018-04-02 07:43] LABS: Actual Bicarbonate (HCO3a) 23.6 mEq/L (22-28); Analyzer IN Cardio OR; Base Excess (BEa) -4.2 mEq/L (-2.0 to +3.0); CO2 Tension 55.4 mmHg (35.0-45.0); Calcium, Ionized 1.05 mmol/L (1.12-1.30); Carboxyhemoglobin (COHb) 0.2 gm% (0.0-3.0); Hemoglobin (Hb) 12.4 g/dL (14.0-18.0); O2 Tension (PaO2) 194.7 mmHg (80.0-100.0); Potassium - ABG Lab 5.54 mmol/L (3.70-5.30)
[2018-04-02 07:43] LABS: Actual Bicarbonate (HCO3a) 20.4 mEq/L (22-28); Analyzer IN Cardio OR; Base Excess (BEa) -5.2 mEq/L (-2.0 to +3.0); CO2 Tension 39.9 mmHg (35.0-45.0); Calcium, Ionized 1.11 mmol/L (1.12-1.30); Carboxyhemoglobin (COHb) 1.4 gm% (0.0-3.0); O2 Tension (PaO2) 337.6 mmHg (80.0-100.0); Potassium - ABG Lab 4.51 mmol/L (3.70-5.30); pH, Arterial 7.33 (7.35-7.45)
[2018-04-02 07:44] LABS: Actual Bicarbonate (HCO3v) 22 mEq/L (22-28); Analyzer IN Cardio OR; Base Excess -5.3 mEq/L (-2.0 to +3.0); Chloride (ABG LAB) 104 mmol/L (98-106); Hemoglobin (Hb) 12.7 g/dL (13.1-17.2); Potassium - ABG Lab 5.12 mmol/L (3.70-5.30); Sodium 137.5 mmol/L (133-146); pH (venous) 7.25 (7.32-7.43)
[2018-04-02 07:44] LABS: Actual Bicarbonate (HCO3a) 19.3 mEq/L (22-28); Analyzer IN Cardio OR; Base Excess (BEa) -6.9 mEq/L (-2.0 to +3.0); CO2 Tension 41.5 mmHg (35.0-45.0); Calcium, Ionized 1.06 mmol/L (1.12-1.30); Carboxyhemoglobin (COHb) 0.3 gm% (0.0-3.0); Hemoglobin (Hb) 11.9 g/dL (14.0-18.0); O2 Tension (PaO2) 283.6 mmHg (80.0-100.0); Potassium - ABG Lab 4.85 mmol/L (3.70-5.30); pH, Arterial 7.29 (7.35-7.45)
[2018-04-02 07:44] LABS: Actual Bicarbonate (HCO3v) 21 mEq/L (22-28); Analyzer IN Cardio OR; Base Excess -6.8 mEq/L (-2.0 to +3.0); Calcium, Ionized 1.07 mmol/L (1.16-1.32); Chloride (ABG LAB) 105 mmol/L (98-106); Potassium - ABG Lab 4.83 mmol/L (3.70-5.30); Sodium 138.9 mmol/L (133-146)
[2018-04-02 07:45] LABS: Actual Bicarbonate (HCO3a) 46.4 mEq/L (22-28); Analyzer IN Cardio OR; Base Excess (BEa) 19.3 mEq/L (-2.0 to +3.0); Calcium, Ionized 0.88 mmol/L (1.12-1.30); Carboxyhemoglobin (COHb) 0.2 gm% (0.0-3.0); Hemoglobin (Hb) 11.3 g/dL (14.0-18.0); O2 Tension (PaO2) 225.3 mmHg (80.0-100.0); Potassium - ABG Lab 4.32 mmol/L (3.70-5.30); pH, Arterial 7.46 (7.35-7.45)
[2018-04-02 07:46] LABS: Actual Bicarbonate (HCO3a) 21.5 mEq/L (22-28); Analyzer IN Cardio OR; Base Excess (BEa) -5.5 mEq/L (-2.0 to +3.0); CO2 Tension 47.8 mmHg (35.0-45.0); Calcium, Ionized 1.31 mmol/L (1.12-1.30); Carboxyhemoglobin (COHb) 0.9 gm% (0.0-3.0); Hemoglobin (Hb) 13.3 g/dL (14.0-18.0); O2 Tension (PaO2) 274.3 mmHg (80.0-100.0); Potassium - ABG Lab 4.37 mmol/L (3.70-5.30); pH, Arterial 7.27 (7.35-7.45)
[2018-04-02 07:46] LABS: Actual Bicarbonate (HCO3a) 24.9 mEq/L (22-28); Analyzer IN Cardio OR; Base Excess (BEa) -1.9 mEq/L (-2.0 to +3.0); CO2 Tension 51.3 mmHg (35.0-45.0); Calcium, Ionized 1.01 mmol/L (1.12-1.30); Carboxyhemoglobin (COHb) 0.6 gm% (0.0-3.0); Hemoglobin (Hb) 11.5 g/dL (14.0-18.0); O2 Tension (PaO2) 373.6 mmHg (80.0-100.0); Potassium - ABG Lab 4.85 mmol/L (3.70-5.30)
[2018-04-02 07:47] LABS: Puncture Site ALINE
[2018-04-02 07:48] LABS: Puncture Site ALINE
[2018-04-02 07:49] LABS: CO2 Tension 67.5 mmHg (35.0-45.0); Puncture Site ALINE
[2018-04-02 07:50] LABS: Puncture Site ALINE
[2018-04-02 07:51] LABS: pH (venous) 7.24 (7.32-7.43)
[2018-04-02 07:52] LABS: Puncture Site ALINE; pH, Arterial 7.25 (7.35-7.45)
[2018-04-02 07:52] LABS: Puncture Site ALINE
--- NOTE | 2018-04-02 08:51 | RAD ---
CHEST ONE VIEW: History: Post open heart surgery. Comparison: Prior day. FINDINGS: Thoracostomy tube placement is similar. Central venous catheter tip is in good position. Mediastinal drains are similar. Patient has been extubated. Left basilar atelectasis. IMPRESSION: Interval extubation without complication. POS: [facility]
[2018-04-02] MEDS: Docusate 100 MG CAP PO SCH ×2 (09:15→20:26)
[2018-04-02] MEDS: Aspirin 325 MG TAB PO SCH (09:15)
[2018-04-02] MEDS: Famotidine/PF 20 mg/2ml Vial SLOW IVP SCH ×2 (09:16→20:26)
[2018-04-02] MEDS: Potassium Chloride 20 MEQ/100 ML PREMIX BAG IVPB PRN (09:19)
[2018-04-02] MEDS ORDERED: Metolazone 5 MG TAB PO SCH (09:30)
[2018-04-02] MEDS: Furosemide 100 MG/10 ML VIAL SLOW IVP SCH ×2 (10:55→22:09)
[2018-04-02] MEDS: Atorvastatin Calcium 40 MG TAB PO SCH (20:26)
--- NOTE | 2018-04-02 21:44 | PDOC.PN ---
- Subjective Encounter Start Date: 04/02/18 Encounter Start Time: 09:30 Patient seen and examined for NSTEMI. No new complaints. No overnight events - Objective Resuscitation Status - Order Detail: 03/30/18 16:49 Resuscitation Status Routine Resuscitation Status: FULL: Full Resuscitation MAR Reviewed: Yes Vital Signs & Weight: Vital Signs (12 hours) Temp Resp 04/02/18 20:00 98.4 F 04/02/18 16:00 99.2 F 04/02/18 14:00 16 04/02/18 11:00 16 04/02/18 10:00 18 Weight Weight 188 lb 14.978 oz Most Recent Monitor Data Heart Rate from ECG 99 NIBP 96/69 NIBP BP-Mean 78 Respiration from ECG 25 SpO2 100 I&O: 04/01/18 04/02/18 04/03/18 06:59 06:59 06:59 Intake Total 1440 4568.5 2601 Output Total 800 1610 1970 Balance 640 2958.5 631 Result Diagrams: 04/03/18 04:05 04/03/18 04:05 Additional Labs: Accuchecks 04/02/18 04/02/18 04/02/18 20:30 15:59 11:29 POC Glucose 120 H 103 146 H 04/02/18 04/02/18 04/01/18 07:50 05:00 23:18 POC Glucose 113 H 124 H 141 H EKG Reviewed by me: Yes (Tele SR) Phys Exam - Physical Examination Constitutional: NAD Respiratory: no wheezing, no rhonchi Cardiovascular: RRR, no rub chest tube + Gastrointestinal: soft, non-tender, positive bowel sounds Musculoskeletal: no edema Neurological: moves all 4 limbs Dx/Plan - Plan DVT proph w/SCDs 1. NSTEMI/3 V disease 2. Tobacco dependence. 3. Chronic kidney disease, stage 2. 4. Abnormal LFTs of unclear etiology, probably secondary to alcohol use. 5. Chronic alcohol use. 6. Mildly elevated CK. 7. Anxiety. PLAN: Cont supportive care Cont ASA/Statins On Pressors Cont current meds as below Review of Systems - Review of Systems Respiratory: negative: Cough, Dry, Shortness of Breath, Hemoptysis, SOB with Excertion, Pleuritic Pain, Sputum, Wheezing Cardiovascular: negative: chest pain, palpitations, orthopnea, paroxysmal nocturnal dyspnea, edema, light headedness, other - Medications/Allergies Allergies/Adverse Reactions: Allergies Allergy/AdvReac Type Severity Reaction Status Date / Time UNKNOWN Allergy Uncoded 03/30/18 19:52 Medications: Current Medications Acetaminophen (Tylenol) 650 mg PO Q6H PRN PRN Reason: Headache/Fever Or Mild Pain Hydrocodone Bitart/Acetaminophen ([place] 5/325) 1 tab PO Q4H PRN PRN Reason: Moderate Pain (4-6) Last Admin: 04/01/18 22:12 Dose: 1 tab Hydrocodone Bitart/Acetaminophen ([place] 5/325) 2 tab PO Q4H PRN PRN Reason: Severe Pain (7-10) Last Admin: 04/02/18 18:35 Dose: 2 tab Al Hydroxide/Mg Hydroxide (Maalox) 30 ml PO Q4H PRN PRN Reason: Indigestion Albuterol/Ipratropium (Duoneb) 3 ml NEB [id number] PRN PRN Reason: SHORTNESS OF BREATH Aspirin (Aspirin) 325 mg PO DAILY [facility] Last Admin: 04/02/18 09:15 Dose: 325 mg Atorvastatin Calcium (Lipitor) 40 mg PO HS [facility] Last Admin: 04/02/18 20:26 Dose: 40 mg Bisacodyl (Dulcolax) 10 mg PO Q12H PRN PRN Reason: Constipation Bisacodyl (Dulcolax) 10 mg ID Q12H PRN PRN Reason: Constipation Dextrose/Water (Dextrose 50%) 25 gm SLOW IVP PRN PRN PRN Reason: PER HYPOGLYCEMIC PROTOCOL Docusate Sodium (Colace) 100 mg PO BID [facility] Last Admin: 04/02/18 20:26 Dose: 100 mg Famotidine (Pepcid) 20 mg SLOW IVP Q12HR [facility] Last Admin: 04/02/18 20:26 Dose: 20 mg Fentanyl (Sublimaze) 25 mcg SLOW IVP Q2H PRN PRN Reason: Moderate Pain (4-6) Stop: 04/03/18 07:34 Last Admin: 04/02/18 16:46 Dose: 25 mcg Fentanyl (Sublimaze) 50 mcg SLOW IVP Q2H PRN PRN Reason: Severe Pain (7-10) Stop: 04/03/18 07:34 Last Admin: 04/01/18 15:47 Dose: 50 mcg Furosemide (Lasix) 80 mg SLOW IVP 1000,2200 [facility] Stop: 04/02/18 22:01 Last Admin: 04/02/18 10:55 Dose: 80 mg Glucagon (Glucagon) 1 mg SC PRN PRN PRN Reason: PER HYPOGLYCEMIC PROTOCOL Guaifenesin/Dextromethorphan (Robitussin Dm) 15 ml PO Q4H PRN PRN Reason: Cough Hydralazine HCl (Apresoline) 10 mg SLOW IVP Q6H PRN PRN Reason: To Maintain SBP< 140mmHG Norepinephrine Bitartrate (Levophed) 250 mls @ 0 mls/hr IVPB PRN PRN; Protocol PRN Reason: To maintain SBP > 90 mmHG Last Admin: 04/02/18 19:37 Dose: 250 mls Nitroglycerin/Dextrose (Nitroglycerin 50 Mg/250 Ml Bot) 250 mls @ 0 mls/hr IVPB PRN PRN; Protocol PRN Reason: To Maintain SBP< 140mmHG Sodium Chloride (Normal Saline 0.9%) 1,000 mls @ 75 mls/hr IV .[id number] [facility] Last Admin: 04/02/18 18:27 Dose: 1,000 mls Insulin Human Regular 100 (units/ Sodium Chloride) 101 mls @ 0 mls/hr IVPB INF [facility]; Protocol Dextrose/Water (D5w) 1,000 mls @ 0 mls/hr IV INF PRN PRN Reason: PRN HYPOGLYCEMIC PROTOCOL Insulin Human Regular (Humulin R) 0 units SC Q4H PRN; Protocol PRN Reason: POST OP SLIDING SCALE Last Admin: 04/02/18 11:37 Dose: 3 unit Ketorolac Tromethamine (Toradol) 30 mg IVP Q6HR [facility] Stop: 04/04/18 12:01 Last Admin: 04/02/18 18:28 Dose: 30 mg Metolazone (Zaroxolyn) 10 mg PO 0830 [facility] Ondansetron HCl (Zofran) 4 mg IVP Q6H PRN PRN Reason: Nausea/Vomiting Potassium Chloride (Kcl) 20 meq IVPB PRN PRN PRN Reason: K level </= 4.0 Last Admin: 04/02/18 09:19 Dose: 20 meq Promethazine HCl (Phenergan) 6.25 mg IM Q4H PRN PRN Reason: Nausea/Vomiting Sodium Chloride (Flush - Normal Saline) 10 ml IVF Q12HR [facility] Last Admin: 04/02/18 20:26 Dose: 10 ml
[2018-04-03] MEDS: Ketorolac Tromethamine 30 MG/ML VIAL IVP SCH ×2 (00:08→06:08)
[2018-04-03 05:08] LABS: #Basophils 0.1 thou/uL (0.0-0.2); #Eosinphils 0.1 thou/uL (0.0-0.7); #Lymphocytes 3.7 thou/uL (1.20-3.40); #Monocytes 1.7 thou/uL (0.11-0.59); #Neutrophils 9.8 thou/uL (1.40-6.50); %Basophils 0.4 % (0.0-1.0); %Eosinophils 0.5 % (0.0-10.0); %Lymphocytes 23.8 % (21.0-51.0); %Monocytes 11.3 % (0.0-10.0); Hemoglobin 9.5 g/dL (14.0-18.0); Mean Corpuscular HGB CONC 33.2 g/dL (32.0-36.0); Mean Corpuscular Hemoglobin 30.9 pg (27.0-31.0); Mean Corpuscular Volume 92.8 fL (78.0-98.0); Mean Platelet Volume 9.3 fL (7.4-10.4); Platelet Count 94 thou/uL (130-400); Red Blood Cell (RBC) Count 3.07 mill/uL (4.70-6.10); White Blood Cell (WBC) Count 15.4 thou/uL (4.8-10.8)
[2018-04-03 05:22] LABS: Anion Gap 12 mmol/L (10-20); BUN (Urea Nitrogen) 26 mg/dL (8.4-25.7); Calc. Creatinine Clearance 82 mL/min (70-130); Calcium 8.4 mg/dL (7.8-10.44); Carbon Dioxide 29 mmol/L (22-29); Chloride 106 mmol/L (98-107); Estimated GFR-MDRD 62; Glucose 102 mg/dL (70-105); Magnesium 2.2 mg/dL (1.6-2.6); Potassium 3.7 mmol/L (3.5-5.1); Sodium 143 mmol/L (136-145)
[2018-04-03] MEDS: Sodium Chloride 0.9% 1,000 ML IV SCH ×2 (06:09→21:17)
[2018-04-03] MEDS: Norepinephrine 8 MG/0.9% NS 250 ML IVPB PRN (06:13)
[2018-04-03] MEDS ORDERED: Metolazone 5 MG TAB PO SCH ×2 (07:00→08:30)
--- NOTE | 2018-04-03 07:27 | EKG ---
Test Reason : Blood Pressure : / mmHG Vent. Rate : 103 BPM Atrial Rate : 103 BPM P-R Int : 122 ms QRS Dur : 080 ms QT Int : 354 ms P-R-T Axes : 070 055 079 degrees QTc Int : [address] depression, consider subendocardial injury /vs.ischemia. Abnormal ECG When compared with ECG of 30-MAR-2018 09:59, (Unconfirmed) Non-specific change in ST segment in Inferior leads Confirmed by LEIA MARTIN ([id number]) on 04/03/2018 7:26:50 AM Referred By: SIG Confirmed By:LEIA MARTIN
[2018-04-03] MEDS: Furosemide 40 MG/4 ML VIAL SLOW IVP SCH ×2 (07:55→13:54)
[2018-04-03] MEDS: Aspirin 325 MG TAB PO SCH (08:11)
[2018-04-03] MEDS: Docusate 100 MG CAP PO SCH ×2 (08:12→22:13)
[2018-04-03] MEDS: Famotidine 20 MG TAB PO SCH ×2 (08:12→22:13)
[2018-04-03] MEDS: HYDROcodone/Acetaminophen 5/325 mg Tablet PO PRN ×3 (08:14→22:14)
--- NOTE | 2018-04-03 08:54 | RAD ---
PORTABLE CHEST: Date: 04/03/18 HISTORY: Postop sternotomy. CCU follow-up. COMPARISON: 04/02/18. FINDINGS/IMPRESSION: Cardiomegaly. Mild vascular congestion. Bilateral effusions and bibasilar atelectasis. Right chest tu be remains in place. Central line unchanged. Above findings show no acute change from yesterday. POS: [facility]
[2018-04-03] MEDS: Insulin Regular 300 UNITS/3 ML VIAL SC PRN (09:25)
[2018-04-03] MEDS: Potassium Chloride 20 MEQ/100 ML PREMIX BAG IVPB PRN (09:30)
[2018-04-03] MEDS ORDERED: ALPRAZolam 0.25 MG TAB PO PRN (20:06)
[2018-04-03] MEDS: Atorvastatin Calcium 40 MG TAB PO SCH (22:13)
--- NOTE | 2018-04-03 23:05 | PDOC.PN ---
- Subjective Encounter Start Date: 04/03/18 Encounter Start Time: 10:15 Patient seen and examined for NSTEMI s/p CABG. Sitting on chair. On low dose Levophed. No new complaints. No overnight events - Objective Resuscitation Status - Order Detail: 03/30/18 16:49 Resuscitation Status Routine Resuscitation Status: FULL: Full Resuscitation MAR Reviewed: Yes Vital Signs & Weight: Vital Signs (12 hours) Temp Pulse Ox 04/03/18 15:00 98.0 F 04/03/18 13:58 100 Weight Weight 190 lb 11.198 oz Most Recent Monitor Data Heart Rate from ECG 100 NIBP 119/84 NIBP BP-Mean 95 Respiration from ECG 26 SpO2 97 I&O: 04/02/18 04/03/18 04/04/18 06:59 06:59 06:59 Intake Total 4568.5 4072.2 1188 Output Total 1610 3455 2340 Balance 2958.5 617.2 -1152 Result Diagrams: 04/04/18 05:00 04/04/18 05:00 Additional Labs: Accuchecks 04/03/18 04/03/18 04/03/18 21:42 16:30 09:01 POC Glucose 94 109 135 H 04/03/18 04/03/18 04/01/18 04:09 00:11 14:49 POC Glucose 109 110 148 H 04/01/18 04/01/18 04/01/18 13:59 13:42 12:59 POC Glucose 183 H 175 H 163 H 04/01/18 04/01/18 04/01/18 12:18 11:21 08:25 POC Glucose 135 H 130 H 110 EKG Reviewed by me: Yes (Tele SR) Phys Exam - Physical Examination Constitutional: NAD Respiratory: no wheezing, no rhonchi Cardiovascular: RRR, no rub Gastrointestinal: soft, non-tender, positive bowel sounds Musculoskeletal: no edema Neurological: moves all 4 limbs Dx/Plan - Plan DVT proph w/SCDs 1. NSTEMI/CAD s/p CABG 2. Tobacco dependence. counselled. 3. Chronic kidney disease, stage 2. 4. Abnormal LFTs of unclear etiology, probably secondary to alcohol use. 5. Chronic alcohol use. 6. Mildly elevated CK. 7. Anxiety. PLAN: Cont ASA/Statins/Pressors Cont current meds as below Cont supportive care Review of Systems - Review of Systems Cardiovascular: negative: chest pain, palpitations, orthopnea, paroxysmal nocturnal dyspnea, edema, light headedness, other Gastrointestinal: negative: Nausea, Vomiting, Abdominal Pain, Diarrhea, Constipation, Melena, Hematochezia, Other - Medications/Allergies Allergies/Adverse Reactions: Allergies Allergy/AdvReac Type Severity Reaction Status Date / Time UNKNOWN Allergy Uncoded 03/30/18 19:52 Medications: Current Medications Acetaminophen (Tylenol) 650 mg PO Q6H PRN PRN Reason: Headache/Fever Or Mild Pain Hydrocodone Bitart/Acetaminophen ([place] 5/325) 1 tab PO Q4H PRN PRN Reason: Moderate Pain (4-6) Last Admin: 04/03/18 22:14 Dose: 1 tab Hydrocodone Bitart/Acetaminophen ([place] 5/325) 2 tab PO Q4H PRN PRN Reason: Severe Pain (7-10) Last Admin: 04/03/18 13:52 Dose: 2 tab Al Hydroxide/Mg Hydroxide (Maalox) 30 ml PO Q4H PRN PRN Reason: Indigestion Albuterol/Ipratropium (Duoneb) 3 ml NEB [id number] PRN PRN Reason: SHORTNESS OF BREATH Alprazolam (Xanax) 0.25 mg PO BIDPRN PRN PRN Reason: Anxiety Last Admin: 04/03/18 22:13 Dose: 0.25 mg Aspirin (Aspirin) 325 mg PO DAILY [facility] Last Admin: 04/03/18 08:11 Dose: 325 mg Atorvastatin Calcium (Lipitor) 40 mg PO HS [facility] Last Admin: 04/03/18 22:13 Dose: 40 mg Bisacodyl (Dulcolax) 10 mg PO Q12H PRN PRN Reason: Constipation Bisacodyl (Dulcolax) 10 mg [place] Q12H PRN PRN Reason: Constipation Dextrose/Water (Dextrose 50%) 25 gm SLOW IVP PRN PRN PRN Reason: PER HYPOGLYCEMIC PROTOCOL Docusate Sodium (Colace) 100 mg PO BID [facility] Last Admin: 04/03/18 22:13 Dose: 100 mg Famotidine (Pepcid) 20 mg PO Q12HR [facility] Last Admin: 04/03/18 22:13 Dose: 20 mg Glucagon (Glucagon) 1 mg SC PRN PRN PRN Reason: PER HYPOGLYCEMIC PROTOCOL Guaifenesin/Dextromethorphan (Robitussin Dm) 15 ml PO Q4H PRN PRN Reason: Cough Hydralazine HCl (Apresoline) 10 mg SLOW IVP Q6H PRN PRN Reason: To Maintain SBP< 140mmHG Norepinephrine Bitartrate (Levophed) 250 mls @ 0 mls/hr IVPB PRN PRN; Protocol PRN Reason: To maintain SBP > 90 mmHG Last Admin: 04/02/18 19:37 Dose: 250 mls Nitroglycerin/Dextrose (Nitroglycerin 50 Mg/250 Ml Bot) 250 mls @ 0 mls/hr IVPB PRN PRN; Protocol PRN Reason: To Maintain SBP< 140mmHG Sodium Chloride (Normal Saline 0.9%) 1,000 mls @ 75 mls/hr IV .[id number] [facility] Last Admin: 04/03/18 21:17 Dose: Not Given Insulin Human Regular 100 (units/ Sodium Chloride) 101 mls @ 0 mls/hr IVPB INF [facility]; Protocol Dextrose/Water (D5w) 1,000 mls @ 0 mls/hr IV INF PRN PRN Reason: PRN HYPOGLYCEMIC PROTOCOL Insulin Human Regular (Humulin R) 0 units SC Q4H PRN; Protocol PRN Reason: POST OP SLIDING SCALE Last Admin: 04/03/18 09:25 Dose: 2 unit Ondansetron HCl (Zofran) 4 mg IVP Q6H PRN PRN Reason: Nausea/Vomiting Potassium Chloride (Kcl) 20 meq IVPB PRN PRN PRN Reason: K level </= 4.0 Last Admin: 04/03/18 09:30 Dose: 20 meq Promethazine HCl (Phenergan) 6.25 mg IM Q4H PRN PRN Reason: Nausea/Vomiting Sodium Chloride (Flush - Normal Saline) 10 ml IVF Q12HR [facility] Last Admin: 04/03/18 22:15 Dose: 10 ml
[2018-04-04 05:55] LABS: #Eosinphils 0.1 thou/uL (0.0-0.7); #Lymphocytes 2.1 thou/uL (1.20-3.40); #Monocytes 1.1 thou/uL (0.11-0.59); #Neutrophils 7.5 thou/uL (1.40-6.50); %Basophils 0.4 % (0.0-1.0); %Eosinophils 0.8 % (0.0-10.0); %Lymphocytes 19.2 % (21.0-51.0); %Monocytes 10.3 % (0.0-10.0); %Neutrophils 69.3 % (42.0-75.0); Hemoglobin 8.9 g/dL (14.0-18.0); Mean Corpuscular Hemoglobin 31.4 pg (27.0-31.0); Mean Corpuscular Volume 92.5 fL (78.0-98.0); Mean Platelet Volume 8.8 fL (7.4-10.4); Platelet Count 109 thou/uL (130-400); RBC Distribution Width 11.9 % (11.5-14.5); Red Blood Cell (RBC) Count 2.82 mill/uL (4.70-6.10); White Blood Cell (WBC) Count 10.9 thou/uL (4.8-10.8)
[2018-04-04 06:06] LABS: Anion Gap 12 mmol/L (10-20); BUN (Urea Nitrogen) 26 mg/dL (8.4-25.7); Calc. Creatinine Clearance 117 mL/min (70-130); Calcium 8.7 mg/dL (7.8-10.44); Carbon Dioxide 32 mmol/L (22-29); Chloride 101 mmol/L (98-107); Estimated GFR-MDRD Greater than 90; Glucose 107 mg/dL (70-105); Magnesium 1.8 mg/dL (1.6-2.6); Potassium 3.3 mmol/L (3.5-5.1); Sodium 142 mmol/L (136-145)
[2018-04-04] MEDS ORDERED: Potassium Chloride 20 MEQ TAB PO SCH (08:30)
[2018-04-04] MEDS: Docusate 100 MG CAP PO SCH (08:33)
[2018-04-04] MEDS: Aspirin 325 MG TAB PO SCH (08:34)
[2018-04-04] MEDS: Famotidine 20 MG TAB PO SCH ×2 (08:34→21:30)
[2018-04-04] MEDS: HYDROcodone/Acetaminophen 5/325 mg Tablet PO PRN ×3 (08:38→21:35)
[2018-04-04] MEDS ORDERED: Acetaminophen 325 MG TAB PO PRN (09:55)
[2018-04-04] MEDS ORDERED: Ondansetron PF 4 MG/2 ML Vial IVP PRN (09:55)
[2018-04-04] MEDS ORDERED: Bisacodyl 5 MG TAB PO PRN (09:55)
[2018-04-04] MEDS ORDERED: Mineral Oil ENEMA PR PRN (09:55)
[2018-04-04] MEDS ORDERED: Guaifenesin DM 100-10/5 ML UDCUP PO PRN (09:55)
[2018-04-04] MEDS ORDERED: Bisacodyl 10 MG SUPP PR PRN (09:55)
[2018-04-04] MEDS ORDERED: Nitroglycerin 0.4 MG TAB (25 Tab Bottle) SL PRN (09:55)
[2018-04-04] MEDS ORDERED: Fentanyl 100 MCG/2 ML VIAL SLOW IVP PRN (09:55)
[2018-04-04] MEDS ORDERED: Mag-Al 1200 mg/1200 mg/30 ML UDCUP PO PRN (09:55)
[2018-04-04] MEDS ORDERED: HYDROcodone/Acetaminophen 5/325 mg Tablet PO PRN (09:55)
--- NOTE | 2018-04-04 10:30 | RAD ---
PORTABLE CHEST ONE VIEW: 04/04/2018 5:31 a.m. HISTORY: Postoperative open heart surgery. FINDINGS: Changes of median sternotomy are again seen. Line and tube placements are unchanged in position. Th ere is mild pulmonary vascular congestion with atelectatic changes in the left lung base. No pneumot horaces are seen. Small pleural effusions are noted to be present bilaterally. POS: [facility]
--- NOTE | 2018-04-04 13:19 | PDOC.PN ---
- Subjective Encounter Start Date: 04/04/18 Encounter Start Time: 10:30 Patient seen and examined for NSTEMI. Off pressors. No CP/Palpitations. No new complaints. No overnight events - Objective Resuscitation Status - Order Detail: 03/30/18 16:49 Resuscitation Status Routine Resuscitation Status: FULL: Full Resuscitation MAR Reviewed: Yes Vital Signs & Weight: Vital Signs (12 hours) Temp Pulse Resp BP Pulse Ox 04/04/18 12:00 98.3 F 92 22 H 112/66 97 04/04/18 08:00 98.6 F 97 04/04/18 07:00 98.6 F 04/04/18 06:57 92 L 04/04/18 05:00 98.8 F Weight Weight 190 lb 11.198 oz Most Recent Monitor Data Heart Rate from ECG 88 NIBP 100/65 NIBP BP-Mean 76 Respiration from ECG 16 SpO2 97 I&O: 04/03/18 04/04/18 04/05/18 06:59 06:59 06:59 Intake Total 4072.2 2388 1440 Output Total 3455 3270 460 Balance 617.2 -882 980 Result Diagrams: 04/04/18 05:00 04/04/18 05:00 Additional Labs: Accuchecks 04/04/18 04/03/18 04/03/18 05:05 21:42 16:30 POC Glucose 117 H 94 109 EKG Reviewed by me: Yes (Tele SR) Phys Exam - Physical Examination Constitutional: NAD Respiratory: no wheezing few rales at bases Cardiovascular: RRR, no rub Gastrointestinal: soft, non-tender, positive bowel sounds Musculoskeletal: no edema Neurological: moves all 4 limbs Dx/Plan - Plan DVT proph w/SCDs 1. NSTEMI/CAD s/p CABG 2. Tobacco dependence. counselled. 3. Hypokalemia 4. Abnormal LFTs of unclear etiology, probably secondary to alcohol use. 5. Chronic alcohol use. 6. CKD 2. 7. Anxiety. PLAN: Replace Potassium Cont ASA/Statins Cont current meds as below Cont supportive care Review of Systems - Review of Systems Respiratory: negative: Cough, Dry, Shortness of Breath, Hemoptysis, SOB with Excertion, Pleuritic Pain, Sputum, Wheezing Cardiovascular: negative: chest pain, palpitations, orthopnea, paroxysmal nocturnal dyspnea, edema, light headedness, other - Medications/Allergies Allergies/Adverse Reactions: Allergies Allergy/AdvReac Type Severity Reaction Status Date / Time UNKNOWN Allergy Uncoded 03/30/18 19:52 Medications: Current Medications Acetaminophen (Tylenol) 650 mg PO Q6H PRN PRN Reason: Headache/Fever or Pain Hydrocodone Bitart/Acetaminophen ([place] 5/325) 1 tab PO Q4H PRN PRN Reason: Moderate Pain (4-6) Hydrocodone Bitart/Acetaminophen ([place] 5/325) 2 tab PO Q4H PRN PRN Reason: Severe Pain (7-10) Al Hydroxide/Mg Hydroxide (Maalox) 30 ml PO Q4H PRN PRN Reason: Indigestion Albuterol/Ipratropium (Duoneb) 3 ml NEB [id number] PRN PRN Reason: Respiratory Distress Aspirin (Ecotrin) 325 mg PO DAILY [facility] Atorvastatin Calcium (Lipitor) 40 mg PO HS [facility] Last Admin: 04/03/18 22:13 Dose: 40 mg Bisacodyl (Dulcolax) 10 mg PO Q12H PRN PRN Reason: Constipation Bisacodyl (Dulcolax) 10 mg MT Q12H PRN PRN Reason: Constipation Famotidine (Pepcid) 20 mg PO BID [facility] Fentanyl (Sublimaze) 50 mcg SLOW IVP Q2H PRN PRN Reason: Severe breakthrough pain Furosemide (Lasix) 40 mg PO DAILY [facility] Guaifenesin/Dextromethorphan (Robitussin Dm) 15 ml PO Q4H PRN PRN Reason: Cough Mineral Oil (Fleet Mineral Oil) 133 ml MT DAILYPRN PRN PRN Reason: Constipation Nitroglycerin (Nitrostat) 0.4 mg SL Q5MIN PRN PRN Reason: Chest Pain Ondansetron HCl (Zofran) 4 mg IVP Q6H PRN PRN Reason: Nausea/Vomiting Potassium Chloride (Klor-Con 10) 10 meq PO [facility]
[2018-04-04] MEDS: Sodium Chloride 0.9% 1,000 ML IV SCH (17:40)
[2018-04-04] MEDS: Atorvastatin Calcium 40 MG TAB PO SCH (21:30)
[2018-04-04] MEDS ORDERED: ALPRAZolam 0.25 MG TAB PO SCH (22:00)
[2018-04-05] MEDS: HYDROcodone/Acetaminophen 5/325 mg Tablet PO PRN ×3 (05:35→20:46)
[2018-04-05] MEDS: Famotidine 20 MG TAB PO SCH ×2 (09:49→20:45)
[2018-04-05] MEDS: Aspirin 325 mg Enteric Coated Tablet PO SCH (09:49)
[2018-04-05] MEDS: Furosemide 40 MG TAB PO SCH (09:50)
[2018-04-05] MEDS: Potassium Chloride 10 MEQ TAB PO SCH (09:50)
--- NOTE | 2018-04-05 12:38 | PDOC.PN ---
- Subjective Encounter Start Date: 04/05/18 Encounter Start Time: 09:00 Patient seen and examined for NSTEMI. Chest tube dced. No CP. No new complaints. No overnight events - Objective Resuscitation Status - Order Detail: 03/30/18 16:49 Resuscitation Status Routine Resuscitation Status: FULL: Full Resuscitation MAR Reviewed: Yes Vital Signs & Weight: Vital Signs (12 hours) Temp Pulse Pulse Pulse Resp BP BP 04/05/18 11:48 107 H 92 122/72 120/77 04/05/18 09:20 99 100 121/79 124/80 04/05/18 08:45 98.7 F 92 22 H 04/05/18 04:00 98.7 F 96 20 BP BP Pulse Ox 04/05/18 11:48 04/05/18 09:20 04/05/18 08:45 111/77 98 04/05/18 04:00 116/66 94 L Weight Weight 190 lb 11.198 oz Most Recent Monitor Data Heart Rate from ECG 94 NIBP 98/71 NIBP BP-Mean 80 Respiration from ECG 22 SpO2 97 I&O: 04/04/18 04/05/18 04/06/18 06:59 06:59 06:59 Intake Total 2388 1920 Output Total 3270 790 Balance -882 1130 Result Diagrams: 04/04/18 05:00 04/04/18 05:00 EKG Reviewed by me: Yes (Tele SR) Phys Exam - Physical Examination Constitutional: NAD Respiratory: no wheezing, no rhonchi Cardiovascular: RRR, no rub Gastrointestinal: soft, non-tender, positive bowel sounds Dx/Plan - Plan DVT proph w/SCDs 1. NSTEMI/CAD s/p CABG 2. Tobacco dependence. counselled. 3. Hypokalemia 4. Abnormal LFTs of unclear etiology, probably secondary to alcohol use. 5. Chronic alcohol use. 6. CKD 2. 7. Anxiety. PLAN: Cont ASA/Statins ACEI and BB on hold due to low BP. Cont diuretics with Potassium Cont current meds as below Cont supportive care Review of Systems - Review of Systems Respiratory: negative: Cough, Dry, Shortness of Breath, Hemoptysis, SOB with Excertion, Pleuritic Pain, Sputum, Wheezing Cardiovascular: negative: chest pain, palpitations, orthopnea, paroxysmal nocturnal dyspnea, edema, light headedness, other - Medications/Allergies Allergies/Adverse Reactions: Allergies Allergy/AdvReac Type Severity Reaction Status Date / Time UNKNOWN Allergy Uncoded 03/30/18 19:52 Medications: Current Medications Acetaminophen (Tylenol) 650 mg PO Q6H PRN PRN Reason: Headache/Fever or Pain Hydrocodone Bitart/Acetaminophen ([place] 5/325) 1 tab PO Q4H PRN PRN Reason: Moderate Pain (4-6) Hydrocodone Bitart/Acetaminophen ([place] 5/325) 2 tab PO Q4H PRN PRN Reason: Severe Pain (7-10) Last Admin: 04/05/18 05:35 Dose: 2 tab Al Hydroxide/Mg Hydroxide (Maalox) 30 ml PO Q4H PRN PRN Reason: Indigestion Albuterol/Ipratropium (Duoneb) 3 ml NEB [id number] PRN PRN Reason: Respiratory Distress Aspirin (Ecotrin) 325 mg PO DAILY [facility] Last Admin: 04/05/18 09:49 Dose: 325 mg Atorvastatin Calcium (Lipitor) 40 mg PO [facility] Last Admin: 04/04/18 21:30 Dose: 40 mg Bisacodyl (Dulcolax) 10 mg PO Q12H PRN PRN Reason: Constipation Bisacodyl (Dulcolax) 10 mg MT Q12H PRN PRN Reason: Constipation Famotidine (Pepcid) 20 mg PO BID [facility] Last Admin: 04/05/18 09:49 Dose: 20 mg Fentanyl (Sublimaze) 50 mcg SLOW IVP Q2H PRN PRN Reason: Severe breakthrough pain Furosemide (Lasix) 40 mg PO DAILY [facility] Last Admin: 04/05/18 09:50 Dose: 40 mg Guaifenesin/Dextromethorphan (Robitussin Dm) 15 ml PO Q4H PRN PRN Reason: Cough Mineral Oil (Fleet Mineral Oil) 133 ml MT DAILYPRN PRN PRN Reason: Constipation Nitroglycerin (Nitrostat) 0.4 mg SL Q5MIN PRN PRN Reason: Chest Pain Ondansetron HCl (Zofran) 4 mg IVP Q6H PRN PRN Reason: Nausea/Vomiting Potassium Chloride (Klor-Con 10) 10 meq PO [facility] Last Admin: 04/05/18 09:50 Dose: 10 meq
[2018-04-05] MEDS: ALPRAZolam 0.25 MG TAB PO PRN ×2 (16:53→20:44)
[2018-04-05] MEDS: Atorvastatin Calcium 40 MG TAB PO SCH (20:44)
[2018-04-05] MEDS: Metoprolol Tartrate 25 MG TAB PO SCH (20:44)
[2018-04-06] MEDS ORDERED: Potassium Chloride 20 MEQ TAB PO SCH (08:00)
[2018-04-06 08:24] VITALS: BP 100/68; TEMP 98.2
--- NOTE | 2018-04-06 09:21 | DIS ---
DATE OF ADMISSION: 03/30/2018 DATE OF DISCHARGE: 04/06/2018 PRINCIPAL DIAGNOSIS: Coronary artery disease with [id number] myocardial infarction. PROCEDURES PERFORMED: Cardiac catheterization, 03/31/2018; coronary artery bypass grafting x3 with left internal mammary artery to the distal left anterior descending, free right internal mammary artery from the aorta to the first obtuse marginal, right radial artery from the aorta to the PDA, 04/01/2018. HOSPITAL COURSE: The patient is a 57-year-old man with no past medical history, who presented with a stuttering pattern of chest pain and pressure, including one at rest. He presented to the emergency room and already had positive cardiac enzymes. Cardiac catheterization demonstrated severe three-vessel coronary artery disease with preserved left ventricular function. He underwent revascularization using all-arterial conduit and had a relatively uncomplicated perioperative course. He had mild pressor dependence for the first couple of days. He was weaned from his drips, diuresed and transferred to the telemetry unit and his tubes and pacing wires removed. He is now being discharged home on Lopressor 12.5 mg a day, Lipitor 40 mg a day, and an aspirin a day. Job ID: [id number]
[2018-04-06] MEDS: Aspirin 325 mg Enteric Coated Tablet PO SCH (10:00)
[2018-04-06] MEDS: Furosemide 40 MG TAB PO SCH (10:00)
[2018-04-06] MEDS: Metoprolol Tartrate 25 MG TAB PO SCH (10:00)
[2018-04-06] MEDS: Famotidine 20 MG TAB PO SCH (10:01)
[2018-04-06] MEDS: Potassium Chloride 10 MEQ TAB PO SCH (10:01)
[2018-04-06] MEDS: ALPRAZolam 0.25 MG TAB PO PRN (10:23)
--- NOTE | 2018-04-07 08:23 | DIS ---
DATE OF ADMISSION: 03/30/2018 DATE OF DISCHARGE: 04/06/2018 DISCHARGE DISPOSITION: Home. FOLLOWUP: 1. Follow up with primary care physician at [facility]. Please note, the patient did not have PCP prior to admission. 2. Follow up with Cardiovascular, Dr. Guerrero in 2 weeks. 3. Follow up with Dr. Mendez in 2 weeks. Outpatient cardiac rehab was recommended. The patient was seen and examined on the day of discharge. Denies any new complaints. No chest pain, shortness of breath, or palpitations reported. BRIEF HOSPITAL COURSE: The patient is a 57-year-old male with more than [id number] smoking history, presented to the emergency room with chest discomfort. Please refer to the history and physical for further details. The patient was admitted to the hospital with a diagnosis of non-ST elevation [place]. His maximum troponin was 3.89 with CK-MB of 37.5. He was started on aspirin, Lovenox, and statins. His LDL was 120 with cholesterol 165 and HDL of 26. The patient was seen by Cardiology and underwent cardiac catheterization that showed 3-vessel disease. He underwent coronary artery bypass grafting on April 01, 2018. He has done well postoperatively. He has been cleared by consultants for discharge. DISCHARGE MEDICATIONS: 1. Aspirin 325 mg daily. 2. Lipitor 40 mg at bedtime. 3. [place] as needed. 4. Lopressor 12.5 mg b.i.d.. DISCHARGE DIAGNOSES: 1. Non-ST elevation myocardial infarction, status post coronary artery bypass graft. 2. Coronary artery disease as discussed above. 3. Tobacco dependence. The patient was extensively counseled. 4. Hypokalemia, replaced. 5. Chronic alcohol use. 6. Chronic kidney disease stage 2. 7. Abnormal LFTs. 8. Thrombocytopenia. 9. Anxiety. Job ID: [id number]
== END 2018-04-06 13:20 | disposition home or self-care (01) | DRG 234 ==
LOC: ERS 09:54 → ERHOLD 12:31 → 2NO 18:29 → CCU 04-01 07:52 → 2NO 04-04 17:38
PROVIDERS: ADMIT Internal Medicine; ATTEND Internal Medicine
PROC: 4A023N7 Measurement of Cardiac Sampling and Pressure, Left Heart, Percutaneous Approach (ICD-10-PCS; 2018-03-31)
PROC: B2111ZZ Fluoroscopy of Multiple Coronary Arteries using Low Osmolar Contrast (ICD-10-PCS; 2018-03-31)
PROC: B2151ZZ Fluoroscopy of Left Heart using Low Osmolar Contrast (ICD-10-PCS; 2018-03-31)
PROC: 02100Z9 Bypass Coronary Artery, One Artery from Left Internal Mammary, Open Approach (ICD-10-PCS; principal; 2018-04-01)
PROC: 021 Heart and Great Vessels, Bypass (ICD-10-PCS; 2018-04-01)
PROC: 03BB4ZZ Excision of Right Radial Artery, Percutaneous Endoscopic Approach (ICD-10-PCS; 2018-04-01)
PROC: 5A1221Z Performance of Cardiac Output, Continuous (ICD-10-PCS; 2018-04-01)
DX: I21.4 Non-ST elevation (NSTEMI) myocardial infarction (principal); F17.210 Nicotine dependence, cigarettes, uncomplicated; F41.9 Anxiety disorder, unspecified; N18.2 Chronic kidney disease, stage 2 (mild); I25.10 Atherosclerotic heart disease of native coronary artery without angina pectoris; E87.6 Hypokalemia; D69.6 Thrombocytopenia, unspecified; Z79.82 Long term (current) use of aspirin; Z80.0 Family history of malignant neoplasm of digestive organs
CPT/HCPCS: 36415; 36416; 71045; 80048; 80053; 80061; 80306; 80307; 82550; 82553; 82805; 83690; 83735; 83880; 84484; 85025; 85347; 85610; 85730; 86850; 86900; 86901; 93005; 93010; 93306; 93458; 93798; 94002; 94760; 96360; 96361; 96372; 99152; 99153; 99406; A4216; C1769; J1265; J1642; J1644; J1650; J1815; J1885; J1940; J2001; J2150; J2250; J2440; J2720; J3010; J3370; J3475; J3480; J7050; P9045; P9047; S0017; S0028